=== PATIENT | female | born 2000 | race Hispanic/Latino ===

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

== ENCOUNTER 2020-07-22 19:30 | Emergency (ER) | payer OTHER ==
[~2020-07-22] VITALS: Ht 160 cm; Wt 68.7 kg
[2020-07-22 19:32] VITALS: BP 134/72
== END 2020-07-22 20:49 | disposition home or self-care (01) ==
LOC: M ED 19:30
DX: L98.9 Disorder of the skin and subcutaneous tissue, unspecified (principal)

== ENCOUNTER 2020-10-03 13:50 | Emergency (ER) | payer OTHER ==
[~2020-10-03] VITALS: Ht 160 cm; Wt 71.6 kg
[2020-10-03 13:57] VITALS: BP 107/62
== END 2020-10-03 14:49 | disposition home or self-care (01) ==
LOC: M ED 13:50
DX: R35.0 Frequency of micturition (principal); N32.81 Overactive bladder

== ENCOUNTER 2020-10-21 14:02 | Emergency (ER) | payer OTHER ==
[~2020-10-21] VITALS: Ht 160 cm; Wt 72.6 kg
[2020-10-21 16:13] VITALS: BP 125/68
== END 2020-10-21 16:15 | disposition home or self-care (01) ==
LOC: M ED 14:02
DX: O26.892 Other specified pregnancy related conditions, second trimester (principal); R35.0 Frequency of micturition; Z3A.13 13 weeks gestation of pregnancy

== ENCOUNTER 2020-12-07 12:50 | Outpatient (CLI) | payer OTHER ==
[~2020-12-07] VITALS: Ht 160 cm; Wt 77.6 kg
[2020-12-07] MEDS ORDERED: PRENTAB9 PO (13:04)
[2020-12-07] MEDS ORDERED: AMPI500C9 PO (13:10)
[2020-12-07 13:20] VITALS: BP 118/58
[2020-12-07] MEDS ORDERED: HOME MED LIST COMPLETE! XX SCH (13:30)
[2020-12-07 13:50] VITALS: BP 117/59
[2020-12-07 14:56] VITALS: BP 110/60
== END 2020-12-07 15:14 | disposition home or self-care (01) ==
LOC: M LDO 12:50
PROVIDERS: ATTEND Registered Nurse
DX: O46.92 Antepartum hemorrhage, unspecified, second trimester (principal); Z3A.20 20 weeks gestation of pregnancy
CPT/HCPCS: G0378; G0463

== ENCOUNTER 2021-03-20 01:30 | Outpatient (CLI) | payer OTHER ==
[~2021-03-20] VITALS: Ht 160 cm; Wt 94.1 kg
[~2021-03-20 01:30] MED LIST: AMPI500C9 PO; PRENTAB9 PO
[2021-03-20 01:46] VITALS: BP 103/64
[2021-03-20] MEDS ORDERED: VITA500C24 PO (01:55)
[2021-03-20] MEDS ORDERED: IRON65TA2 PO (01:55)
[2021-03-20] MEDS ORDERED: HOME MED LIST COMPLETE! XX SCH (02:00)
[2021-03-20] MEDS ORDERED: ACETAMINOPHEN 500 MG TAB PO ONE (02:50)
--- NOTE | 2021-03-20 07:01 | IPNPDOC ---
Text Note Date of Service The patient was seen on 03/20/21. NOTE 20 yo at 34+6 weeks gestation presented to L&D with the complaint of right sided abdominal pain of about 2 hours duration. She describes it as somewhat sharp. It is constant in nature. There is no radiation. It is made worse when her baby moves. She denies any trauma. She denies any fevers/chills, SOB, chest pain, dysuria, anorexia, constipation, or vomiting. She denies any bleeding, discharge, or leakage of fluid. She endorses regular movement. The pain lessened considerably when she got to L&D triage. Chaperoned by RN Vitals - VSS, afebrile, normotensive, non tachycardic General - AAOX3, sitting up in bed, pleasant and conversant, NAD Abdomen - Soft. Gravid uterus appropriate size for gestational age. No fundal tenderness. Mild tenderness on right side of uterus. No rebound or guarding. No RLQ tenderness. No flank pain. Cervix - cl/thick/high, posterior. No blood or discharge in vaginal vault. FHR tracing - Cat I with +accels, no decels. Ctx intermittent on toco not felt by patient. Labs: UA - clean catch urine unremarkable No signs of labor or infection. No signs of acute abdominal process. R eassuring status. UA unremarkable. Patient refused medication for pain. Also, pain had significantly improved while in triage. Discharged home with return precautions. All questions answered. 40 minutes Anny Vaca, I+O Anny JOHNSON, I+O Vital Signs Date Time Temp Pulse Resp B/P (MAP) Pulse Ox O2 Delivery O2 Flow Rate FiO2 03/20/21 01:46 98.8 93 18 103/64 (77) YANNI HEMPHILL DO Mar 20, 2021 07:01
== END 2021-03-20 04:15 | disposition home or self-care (01) ==
LOC: M LDO 01:30
PROVIDERS: ATTEND Obstetrics & Gynecology
DX: O26.893 Other specified pregnancy related conditions, third trimester (principal); R10.11 Right upper quadrant pain; Z3A.34 34 weeks gestation of pregnancy
CPT/HCPCS: 59025; 81001; G0378; G0463

== ENCOUNTER 2021-04-29 12:54 | Inpatient (IN) | payer OTHER ==
[~2021-04-29] VITALS: Ht 160 cm; Wt 99.9 kg
[~2021-04-29 12:54] MED LIST changes: +IRON65TA2 PO; +VITA500C24 PO
[2021-04-29 13:09] VITALS: BP 113/58
[2021-04-29] MEDS ORDERED: PENICILLIN G POTASSIUM IV 5 MU in D5W MINI-BAG PLUS 100 ML IV STA (13:49)
[2021-04-29] MEDS ORDERED: OXYTOCIN DRIP 30 UNITS in IV 1 EA IV PRN ×4 (13:50)
--- NOTE | 2021-04-29 14:09 | HPEPDOC ---
Obstetrical History & Physical General Date of Admission Apr 29, 2021 at 13:37 History of Present Illness 19yo G1 at 40+4 presenting for labor check, denies vaginal bleeding, loss of flu id. Endorses positive movement. Care Care: Good Care Dating Final EDC: Apr 25, 2021 Final EDC by: LMP, 1st trimester (US) Antepartum Course Diagnos(e)s GBS+ urine frequent UTI MRSA UTI Height (inches): 63 Pre- weight (lbs.): 146 Admission Weight (lbs.): 220 Change in Weight (lbs.): 74 Past Medical History Past Obstetrical History : Past Obstetrical History: [employer] History: No pertinent history Past Medical History Medical History frequent UTI Surgical History: Denies/None Family History Significant Family History: No pertinent family hx Social History Marital Status: Family situation: Spouse/partner home Psychosocial History: No pertinent psych hx * Smoker: non-smoker Alcohol: Denies Drugs: denies Abuse Violence Screening Have you been hit/kicked/slapp: No Have you been sexually assault: No Imunizations Tdap status: current Influenza Status: needs Allergies Coded Allergies: No Known Allergies (Unverified , 04/29/21) Medications Scheduled Ascorbic Acid (Vitamin C) 500 Mg Capsule, 1 CAP PO BID Ferrous Sulfate (Iron) 325 Mg Tablet, 1 TAB PO BID No.137/Iron/Folic Acd ( Vitamin Tablet) 1 Each Tablet, 1 TAB PO DAILY Physical Examination Physical Examination GENERAL: Alert and oriented times three. BREAST: . ABDOMEN: Gravid and non-tender to touch. FETUS: Is vertex by ultrasound; efw 3600g HEART RATE: Regular rate LUNGS: nonlabored breathing EXTREMITIES: No edema. Laboratory Data 24H LABS Laboratory Tests 2 04/29/21 13:45: Serology Scanned Report Hepatitis B Testing Urine Culture: Other (GBS) Pertinent Laboratoy Data Blood Type: O+ RBC Antibody Screen: Negative HIV: Negative Hepatitis B: Negative Rapid Plasma Reagin: Nonreactive Rubella: Immune Varicella: Immune Chlamydia/Gonorrhea: Negative Group B Streptococcus: Positive Quad Screen Test: Negative Cystic Fibrosis: Negative Glucose Tolerance Test: 153 Anatomy Ultrasound Placenta Location: Anterior Normal Anatomy: Yes Placenta Previa: No Steroid Therapy Steroid Therapy: No Vaginal Examination Dilation: 4 cm Effacement: 50% Station: -1 Cervical Consistency: Medium Cervical Position: Posterior Presentation: Cephalic presentation Position: Vertex (occiput) Assessment Heart Rate (FHR): 155 Variability: Moderate Accelerations: Positive Decelerations: None Tocometer Contractions: Yes Frequency: every 2-5 min. Multi-drug resistant Organism: MRSA Assessment/Plan Assessment 19-year old G1 at 40+4 admitted for labor, cervix 4/50/-1, GBS positive, efw 3600g, cephalic by ultrasound, category I tracing. Plan Monitor and deliver. Penicillin for GBS prophylaxis. MRSA PCR nasal swab for clearance. Labor and Delivery Counseling Discussed risks of vaginal delivery including but not limited to bleeding, infection, hysterectomy, injury to , delivery, forceps and vacuum delivery, need for blood transfusion, shoulder dystocia. All questions answered and they indicated understanding. JOSSY RIVERS DO Apr 29, 2021 14:09
[2021-04-29 14:19] LABS: HEMOGLOBIN 12.2 g/dl (12.0-15.5); MEAN CORPUSCULAR HEMOGLOBIN 28.2 pg (27.0-33.0); MEAN CORPUSCULAR HGB CONC 33.9 g/dl (32.0-36.5); MEAN CORPUSCULAR VOLUME 83.3 fl (80.0-96.0); PLATELET COUNT, AUTOMATED 216 10^3/uL (150-450); RED BLOOD COUNT 4.32 10^6/uL (4.00-5.40); WHITE BLOOD COUNT 9.4 10^3/uL (4.0-10.0)
[2021-04-29] MEDS: LR 1,000 ML IV SCH ×2 (14:26→22:08)
[2021-04-29] MEDS: PENICILLIN G POTASSIUM IV 2.5 MU in IV 1 EA IV SCH ×2 (18:00→23:33)
[2021-04-29 18:22] VITALS: BP 101/60
[2021-04-29 19:40] VITALS: BP 129/87
[2021-04-29 20:40] VITALS: BP 113/57
[2021-04-29 22:10] VITALS: BP 115/72
[2021-04-29 23:31] VITALS: BP 114/60
[2021-04-30] VITALS (51 sets, daily range): BP systolic 100–134; BP diastolic 50–82
[2021-04-30] MEDS ORDERED: FENTANYL 2MCG/ML ROPIVACAINE 0.2% IN 0.9% NACL 100ML IVBAG As Ordered ONE (01:48)
[2021-04-30] MEDS ORDERED: ePHEDrine SULFATE 25 MG/5 ML(5MG/ML) SYRINGE IV PRN (03:00)
[2021-04-30] MEDS ORDERED: ONDANSETRON 4MG/2ML VIAL IV PRN ×3 (03:00→16:45)
[2021-04-30] MEDS ORDERED: EPIDURAL/PCA KEYS XX PRN (03:00)
[2021-04-30] MEDS ORDERED: diphenhydrAMINE 50MG/ML VIAL (J1200) IV PRN ×2 (03:00→15:45)
[2021-04-30] MEDS ORDERED: REFRIGERATOR IV KEYS XX PRN (03:00)
[2021-04-30] MEDS ORDERED: NALOXONE INJ 0.4MG/1ML VIAL (J2310 PER 1MG) IV PRN ×3 (03:00→15:45)
[2021-04-30] MEDS ORDERED: EPIDURAL COMMENT XX SCH (03:00)
[2021-04-30] MEDS ORDERED: LACTATED RINGER'S 1000 ML IV PRN (03:00)
[2021-04-30] MEDS: FENTANYL/ROPIVACAINE/NACL BAG 100 ML EPIDURAL SCH ×2 (03:00→14:50)
[2021-04-30] MEDS: PENICILLIN G POTASSIUM IV 2.5 MU in IV 1 EA IV SCH ×2 (03:42→07:30)
--- NOTE | 2021-04-30 04:16 | IPNPDOC ---
Obstetrical Progress Note Date of Service Apr 30, 2021 Subjective Patient requesting epidural Objective Vital Signs Date Time Temp Pulse Resp B/P (MAP) Pulse Ox O2 Delivery O2 Flow Rate FiO2 04/30/21 01:02 70 122/58 (79) 04/29/21 22:10 18 04/29/21 20:40 97.9 Assessment Heart Rate (FHR): 155 Variability: Decreased Accelerations: Positive Decelerations: None Heart Rate Tracing: Category I Tocometer Contractions: Yes Frequency: regular, every 2-5 min. Sterile Vaginal Examination Dilation: 6 cm Assessment and Plan Age: 20 : 1 Term: 0 Pre-term: 0 Abortions: 0 Livin Weeks & Days 33+0 Status: Reassuring Group B Streptococcus: Positive Anticipate: Vaginal Delivery Additional Comments Natural labor progressing naturally. anesthesia notified. -routine intrapartum care JOSSY RIVERS DO Apr 30, 2021 04:16
--- NOTE | 2021-04-30 08:20 | IPNPDOC ---
Text Note Date of Service The patient was seen on 04/30/21. NOTE Received report from Dr. Ramos. May is a 20 yo at 40+5 weeks gestation who was admitted yesterday for early labor. She has been progressing on her own power. She just recently received an epidural and is now comfortable. She has received multiple doses of PCN. May denies any concerns at the bedside. She is comfortable. Chaperoned by RN Cervix: /-1. AROM performed productive of thin meconium stained fluid. FHR tracing - Cat I with moderate variability, +accels, no decels. May is progressing, though slowly. She has adequate GBS treatment. Will reassess progress in 2-4 hours. If progress continues to be slow will add pitocin. All patient and questions answered. Yo VS,Anny, I+O VS, Anny, I+O Laboratory Tests 04/29/21 14:07 Vital Signs Date Time Temp Pulse Resp B/P (MAP) Pulse Ox O2 Delivery O2 Flow Rate FiO2 04/30/21 07:59 98.6 84 18 113/62 (79) I&O- Last 24 Hours up to 6 AM 04/30/21 05:59 Intake Total 1625 ml Balance 1625 ml YANNI HEMPHILL DO Apr 30, 2021 08:20
[2021-04-30] MEDS ORDERED: OXYTOCIN DRIP 30 UNITS in IV 1 EA IV SCH ×2 (09:50→16:45)
[2021-04-30] MEDS: LR 1,000 ML IV SCH (11:08)
--- NOTE | 2021-04-30 12:44 | IPNPDOC ---
Text Note Date of Service The patient was seen on 04/30/21. NOTE Patient reporting feeling vaginal pressure. Pitocin started earlier due to poor contraction pattern. chaperoned by RN Cervix: C/C/0. FHR - Cat II, BL 160, moderate variability but periods of minimal, +accels, +early and intermittent late decels. Overall reassuring tracing. continue pitocin. Will begin pushing soon. All patient and questions answered. Yo VSAnny I+O VS, Anny I+O Laboratory Tests 04/29/21 14:07 Vital Signs Date Time Temp Pulse Resp B/P (MAP) Pulse Ox O2 Delivery O2 Flow Rate FiO2 04/30/21 11:43 86 119/66 (83) 04/30/21 11:13 18 04/30/21 10:13 98.6 I&O- Last 24 Hours up to 6 AM 04/30/21 05:59 Intake Total 1625 ml Balance 1625 ml YANNI HEMPHILL DO Apr 30, 2021 12:44
--- NOTE | 2021-04-30 14:24 | IPNPDOC ---
Text Note Date of Service The patient was seen on 04/30/21. NOTE Went to assess progress. May has nataliia pushing for the last hour. Chaperoned by RN Cervix: C/C/0 with caput to +1. Baby is OP. FHR tracing - Cat II, there has been sustained tachycardia for the last >1hr. Periods of minimal variability, +accels. No real progress over last hour of pushing. FHR tracing has been Cat II with tachycardia. Last maternal temp 99.7. I discussed my concerns regarding the lack of progress and FHR tracing with May and her . Will continue pushing efforts for now. I discussed if there is not substantial progress over the next hour then she will require a section. All questions answered. angélica VS,Anny, I+O VS, Anny, I+O Vital Signs Date Time Temp Pulse Resp B/P (MAP) Pulse Ox O2 Delivery O2 Flow Rate FiO2 04/30/21 13:14 99.7 102 20 131/80 (97) I&O- Last 24 Hours up to 6 AM 04/30/21 06:00 Intake Total 1625 ml Balance 1625 ml YANNI HEMPHILL DO Apr 30, 2021 14:24
[2021-04-30] MEDS ORDERED: AZITHROMYCIN INJ 500 MG, VIAL MATE ADAPTER 1 EACH in NS 250 ML IV ONE (15:20)
[2021-04-30] MEDS ORDERED: ceFAZolin SOD 2 GM in IV 1 EA IV ONE (15:20)
[2021-04-30] MEDS ORDERED: BICITRA 30ML SOLN UDC As Ordered ONE (15:20)
[2021-04-30] MEDS ORDERED: ceFAZolin 2 GM/D5W 50 ML IV BAG (J0690 PER 500MG) As Ordered ONE (15:21)
--- NOTE | 2021-04-30 15:25 | IPNPDOC ---
Text Note Date of Service The patient was seen on 04/30/21. NOTE Presented to room for assessment. May has been pushing for the last two hours. FHR remains Cat II with sustained tachycardia and periods of minimal variability. Chaperoned by RN Cervix: C/C/0 to +1. Baby is OP. No appreciable descent over two hours. I recommended section now for persistent Cat II tracing and arrest of descent. We discussed all risks of surgery to include, but not limited to, bleeding requiring blood transfusion, risk of infection, risk of injury to bowel, bladder, or other structures which could require additional surgery, risk of injury to baby, risk of needing a hysterectomy as a life saving measure, and even risk of and/or maternal . May verbalized understanding of these risks and elected to proceed. Consents signed. Anesthesia notified. Will proceed when team assembled. All questions answered. Yo VS,Anny, I+O VS, Anny, I+O Vital Signs Date Time Temp Pulse Resp B/P (MAP) Pulse Ox O2 Delivery O2 Flow Rate FiO2 04/30/21 14:13 99.1 95 20 127/60 (82) I&O- Last 24 Hours up to 6 AM 04/30/21 05:59 Intake Total 1625 ml Balance 1625 ml YANNI HEMPHILL DO Apr 30, 2021 15:25
[2021-04-30] MEDS ORDERED: BICITRA 30ML SOLN UDC PO SCH (15:30)
[2021-04-30] MEDS ORDERED: METOCLOPRAMIDE INJ 10MG/2ML VIAL (J2765 PER 1) IV PRN (15:45)
[2021-04-30] MEDS ORDERED: NALBUPHINE HCL 10 MG/ML AMP (J2300) IV PRN (15:45)
[2021-04-30] MEDS ORDERED: LIDOCAINE 2% W/EPINEPHRINE 20ML VIAL **PRES FREE As Ordered ONE (15:47)
[2021-04-30] MEDS ORDERED: ONDANSETRON 4MG/2ML VIAL As Ordered ONE (15:47)
[2021-04-30] MEDS ORDERED: KETOROLAC 60MG 2ML VIAL As Ordered ONE (15:47)
[2021-04-30] MEDS ORDERED: MORPHINE PRES-FREE INJ 10 MG/10 ML VIAL (J2274) As Ordered ONE (15:47)
[2021-04-30] MEDS ORDERED: ACETAMINOPHEN 1000MG 100ML IV BTL (OFIRMEV) (J0131 PER 10MG) As Ordered ONE (15:51)
[2021-04-30] MEDS ORDERED: OXYTOCIN 30 UNITS IN 0.9% NaCl 500ML IV BAG (J2590) As Ordered ONE (15:51)
[2021-04-30 16:21] LABS: CORD GAS ABE V -5.5; CORD GAS HCO3 V 21.1 MEQ/L; CORD GAS O2 SAT V 60.4 %; CORD GAS PCO2 V 45.5 mmHg; CORD GAS PH V 7.285 UNITS; CORD GAS PO2 V 28.4 mmHg; CORD GAS SBC V 19.1 MEQ/L; CORD GAS TCO2 V 22.5 MEQ/L
[2021-04-30 16:22] LABS: CORD GAS ABE A -5.9; CORD GAS HCO3 A 23.7 MEQ/L; CORD GAS O2 SAT A 17.9 %; CORD GAS PCO2 A 65.3 mmHg; CORD GAS PH A 7.177 UNITS; CORD GAS PO2 A 13.3 mmHg; CORD GAS TCO2 A 25.7 MEQ/L
[2021-04-30] MEDS ORDERED: LR 1,000 ML IV SCH (16:45)
[2021-04-30] MEDS ORDERED: oxyCODONE 5MG TAB PO PRN (16:45)
[2021-04-30] MEDS ORDERED: ACETAMINOPHEN TAB 650MG DOSE (2X325MG) PO PRN (16:45)
[2021-04-30] MEDS ORDERED: KETOROLAC 30 MG/ML 1ML VIAL IV SCH (16:45)
[2021-04-30] MEDS ORDERED: RHOGAM 300 MCG (1500 IU) INJ (J2790) IM SCH (16:45)
[2021-04-30] MEDS ORDERED: MEASLES,MUMPS,RUBELLA VACCINE INJ (MMR-II) (90707) SC SCH (16:45)
--- NOTE | 2021-04-30 17:45 | ROOPDOC ---
[facility] Report Of Operation Report of Operation DATE OF PROCEDURE: 04/30/2021 PREPROCEDURE DIAGNOSIS: Arrest of descent, NRFHT POSTPROCEDURE DIAGNOSIS: Arrest of descent with a nuchal cord, and right occiput transverse (ROT) position. PROCEDURE: Primary low transverse section. SURGEON: Derek Ram DO, FACOG UNIT EDUCATOR: Ms. Chelsi Servin CNM, who's assistance with exposure, retraction, visualization, and delivery of the was essential to completion of the case ANESTHESIA: Epidural. FLUIDS: 800 mL. URINE OUTPUT: 200 mL. ESTIMATED BLOOD LOSS: 800 mL. ANTIBIOTICS: 2 grams ancef and 500mg azithromycin COMPLICATIONS: None. FINDINGS: Female infant delivered in cephalic, ROT position. Nuchal cord X1 delivered through and reduced manually. Apgars 5/9/9. weight 4270 grams or 9lbs 7oz. Normal appearing uterus, ovaries, and fallopian tubes. Normal appearing placenta. DETAILED PROCEDURE DESCRIPTION: The risks, benefits, indications, and alternatives of the procedure were reviewed with the patient and informed consent was obtained. The patient was taken to the operating room where epidural anesthesia was found to be adequate. She was then prepped and draped in the usual sterile fashion in a dorsal supine position. A surgical time-out was then performed and all in attendance were in agreement with the planned procedure. A Pfannenstiel skin incision was then made with a scalpel and carried through to the underlying layer of fascia. The fascia was incised in the midline and was extended bluntly superiorly, inferiorly, and laterally. The superior aspect of the fascial incision was grasped with Judie clamps, elevated and the underlying rectus muscles were dissected off with a scalpel. Attention was then turned to the inferior aspect of this incision, which in a similar fashion was grasped, tented up with Judie clamps, and the rectus muscles dissected off with Lange scissors. The rectus muscles were then at the midline. The peritoneum was identified and entered digitally. The peritoneal incision was then extended horizontally and superiorly with good visualization of the bladder. A Mobius self containing retractor was then inserted into the abdomen as a means for exposure. The vesicouterine peritoneum was then identified and entered sharply with Metzenbaum scissors. This incision was then extended laterally and a bladder flap was created digitally. Next, the low uterine segment was incised in a transverse fashion with a scalpel. The uterine incision was then extended manually. Light meconium stained fluid was noted upon entry into the uterus. The was found to be in cephalic ROT position. The infant's head was delivered atraumatically through the hysterotomy followed easily by the remainder of the body. The nose and mouth were suctioned with a bulb syringe and the cord was doubly clamped and cut. A nuchal cord was delivered through and reduced manually after delivery. The was then handed off to the awaiting team. Cord gases were obtained. The placenta was then removed manually. The uterus was then cleared of all clots and debris. The uterine incision was repaired with #0 Monocryl suture in a running, locked fashion. A second layer of #0 Monocryl was then used to imbricate the hysterotomy site in a vertical fashion. Inspection revealed excellent hem ostasis. The posterior cul-de-sac was then irrigated to good effect. The hysterotomy again was noted to be hemostatic. There was slight oozing near the bladder flap. Ismael was then applied to these oozing sites to good effect. The paracolic gutters were then cleared of all clots and debris. Final inspection of the hysterotomy revealed excellent hemostasis. The mobius self-containing retractor was then removed from the abdomen. The peritoneum was then reapproximated with #3-0 Vicryl suture. The fascia was reapproximated with #0 Vicryl suture in a running fashion. The subcutaneous fat was closed with #3-0 Vicryl in a running fashion. The skin was closed with #4-0 Monocryl suture in a subcuticular fashion. The incision was then dressed with Steri-Strips and a pressure dressing was applied. At the completion of the case a manual exam was performed which revealed good uterine tone and minimal vaginal bleeding. The patient tolerated the procedure well. Sponge, needle, and instrument counts were correct times three. The patient was taken to the recovery room in stable condition. DEREK RAM DO Apr 30, 2021 17:45
[2021-04-30] MEDS ORDERED: FLUCONAZOLE 100 MG TAB PO ONE (21:20)
[2021-04-30] MEDS: KETOROLAC 30 MG/ML 1ML VIAL IV SCH (22:41)
[2021-05-01] MEDS: LR 1,000 ML IV SCH (01:50)
[2021-05-01 01:57] VITALS: BP 110/55
[2021-05-01] MEDS: KETOROLAC 30 MG/ML 1ML VIAL IV SCH ×2 (04:45→09:24)
[2021-05-01 05:54] VITALS: BP 120/60
[2021-05-01] MEDS: oxyCODONE 5MG TAB PO PRN ×2 (06:45→22:40)
[2021-05-01 07:04] LABS: HEMATOCRIT 26.2 % (36.0-47.0); MEAN CORPUSCULAR HEMOGLOBIN 28.3 pg (27.0-33.0); MEAN CORPUSCULAR VOLUME 83.4 fl (80.0-96.0); PLATELET COUNT, AUTOMATED 150 10^3/uL (150-450); RED BLOOD COUNT 3.14 10^6/uL (4.00-5.40); WHITE BLOOD COUNT 12.3 10^3/uL (4.0-10.0)
[2021-05-01 07:08] LABS: HEMOGLOBIN 8.9 g/dl (12.0-15.5)
--- NOTE | 2021-05-01 07:36 | IPNPDOC ---
Progress Note Date of Service: May 01, 2021 Progress Note 20 yo G1 now P1 s/p uncomplicated PLTCS yesterday afternoon for arrest of descent. Ms. Donato is doing well. She is ambulating, tolerating a regular diet. Pain is well controlled on current regimen. Has not been able to meet her DTV after folet catheter removal. Vitals - VSS, afebrile, normotensive, nontachycardic General - AAOX3, laying in bed, NAD Abdomen - Soft, nondistended. Fundus firm at U-1 but with some displacement from full bladder. No fundal tenderness. Bandage removed and incision clean/dry/intact with steri strips in place. Appropriate rosemary incisional tenderness to palpation. No rebound tenderness or guarding. Extremities - mild edema. Urine output - Appropriate. Unable to meet DTV after catheter removal. Labs: Pre op H/H: ~ ---> ~01/28 Doing well for PPD/POD#1 overall, but unable to meet DTV. Will replace singleton catheter and consider removal tomorrow. Continue IS use. Continue to encourage ambulation and . CBC stable. Continue routine post op / care. Anticipate dc home tomorrow. Yo VS, I&O, 24H, Fishbone Vital Signs/I&O Vital Signs Date Time Temp Pulse Resp B/P (MAP) Pulse Ox O2 Delivery O2 Flow Rate FiO2 05/01/21 06:45 18 05/01/21 05:54 97.5 75 120/60 (80) 99 Room Air I&O- Last 24 Hours up to 6 AM 05/01/21 06:00 Intake Total 2483 ml Output Total 2225 ml Balance 258 ml Laboratory Data 24H LABS Laboratory Tests 2 04/30/21 16:16: Cord Arterial Blood pH 7.177, Cord Arterial Blood PCO2 65.3, Cord Arterial Blood PO2 13.3, Cord Arterial Blood HCO3 23.7, Cord Arterial Blood Total CO2 25.7, Cord Arterial Blood Base Excess -5.9, Cord Arterial Base Excess (Standard 18.0, Cord Arterial Bld Oxygen Saturation 17.9, Cord Venous Blood pH 7.285, Cord Venous Blood PCO2 45.5, Cord Venous Blood PO2 28.4, Cord Venous Blood HCO3 21.1, Cord Venous Blood Total CO2 22.5, Cord Venous Base Excess (Actual) -5.5, Cord V enous Base Excess (Standard) 19.1, Cord Venous Blood Oxygen Saturation 60.4 05/01/21 06:54: Nucleated Red Blood Cells % (auto) 0.0 CBC/BMP Laboratory Tests 05/01/21 06:54 YANNI HEMPHILL DO May 01, 2021 07:36
[2021-05-01] MEDS: PRENATAL VITAMINS CHEWABLE TABLET PO SCH (09:23)
[2021-05-01] MEDS: FLUCONAZOLE 100 MG TAB PO SCH ×2 (09:24→20:17)
[2021-05-01 10:00] VITALS: BP 110/64
[2021-05-01 14:00] VITALS: BP 125/64
[2021-05-01] MEDS: SIMETHICONE 80MG CHEW TAB PO PRN ×2 (15:43→22:39)
[2021-05-01] MEDS: IBUPROFEN 800 MG TAB PO SCH (17:46)
[2021-05-01 18:00] VITALS: BP 123/75
[2021-05-01] MEDS ORDERED: IBUPROFEN 800 MG TAB PO SCH (18:45)
[2021-05-01 22:00] VITALS: BP 108/59
[2021-05-02] MEDS: IBUPROFEN 800 MG TAB PO SCH ×3 (02:52→18:45)
[2021-05-02 05:12] VITALS: BP 131/69
[2021-05-02] MEDS: oxyCODONE 5MG TAB PO PRN ×2 (06:41→20:48)
[2021-05-02] MEDS: SIMETHICONE 80MG CHEW TAB PO PRN (06:41)
[2021-05-02] MEDS: PRENATAL VITAMINS CHEWABLE TABLET PO SCH (09:49)
[2021-05-02] MEDS: FLUCONAZOLE 100 MG TAB PO SCH ×2 (09:51→20:48)
--- NOTE | 2021-05-02 13:16 | IPN ---
PROGRESS NOTE DATE: 05/02/2021 SUBJECTIVE: This is a 20-year-old 1, now para 1, admitted for labor check at 40 and 0/4 weeks of gestation. She had a primary section for arrest of descent and nonreassuring heart tones. Delivered a female infant weighing 9 pounds 7 ounces, 4270 gm, Apgars of 5, 9, and 9 at one, five and ten minutes. Arterial pH was 7.17, base excess -5.9, venous pH 7.28, base excess -5.5. She was GBS positive, treated appropriately. On her third and postoperative day, she is still unable to void. She has a Arriaga catheter in place which will be coming out at 9:00 in order to evaluate urinary status. Her admitting hemoglobin was 12.2, hematocrit 36.0, and platelets were 216. Her day two hemoglobin was 8.9 and hematocrit 26.2 and platelets were 115. OBJECTIVE: Vital signs: Her blood pressure this morning is 131/69, respirations 16, pulse 91, temperature 97.8. The rest of the examination is unremarkable. HEENT: Normocephalic, atraumatic. Neck full range of motions. Pupils equal and reactive to light. Distal pulses symmetric. No evidence of DVT, PE, or superficial phlebitis. Chest is clear bilaterally to bases. No wheezes or rhonchi. Abdomen: No CVA tenderness. Abdomen is soft. Uterus 2 below. Lochia is moderate and incision is clean and dry. No rashes, lesions or pruritus. No arthralgias or myalgias. No complaint of joint pain. No complaint of cough, wheeze, shortness of breath, or dyspnea on exertion. No nausea, vomiting, diarrhea or constipation. No urgency or frequency. ASSESSMENT/PLAN: Plans are to remove the Arriaga catheter, allow her to void. Scan her bladder post-void to see if there is any residual and based on that discussion and the residual of urine, we will determine whether she is a candidate for discharge or a candidate for convalescence for another 24 hours. The patient expressed understanding of the plan of care. cc: Debby HO M.D.
[2021-05-02 18:05] VITALS: BP 122/66
[2021-05-03] MEDS: IBUPROFEN 800 MG TAB PO SCH ×2 (01:27→09:25)
[2021-05-03] MEDS ORDERED: ACET1TAB55 PO (05:15)
[2021-05-03] MEDS ORDERED: IBUP80TA PO (05:15)
[2021-05-03] MEDS ORDERED: OXYC-517 PO (05:15)
--- NOTE | 2021-05-03 05:21 | DS.PDOC ---
Discharge Summary General Date of Admission Apr 29, 2021 at 13:37 Date of Discharge May 03, 2021 Discharge Summary HOSPITAL COURSE: May is a 20 yo G1 now P1 who was admitted for early labor. She progressed into 2nd stage and then began pushing. She pushed for >2 hours with no descent. She then underwent a primary low transverse section on 30Apr2021 for this reason. Her surgery was uncomplicated. She had urinary retention initially and required a singleton catheter to then be in place for an additional 24 hours. She then had the catheter removed and was able to urinate without difficulty. Her post operative recovery course was otherwise uncomplicated. On her day of discharge she met all appropriate discharge criteria. She was ambulating, voiding on her own, tolerating a regular diet, passing gas, and her pain was well controlled with PO pain medication. DISCHARGE MEDICATIONS: Please see below. ALLERGIES: Please see below. PHYSICAL EXAMINATION ON DISCHARGE: VITAL SIGNS: Please see below. GENERAL: AAOX3, sitting up in bed, NAD CARDIOVASCULAR EXAMINATION: RRR ABDOMINAL EXAMINATION: Soft, non distended. Fundus firm at U-2. No fundal tenderness. Incision C/D/I. Steri strips in place. Appropriate tenderness to palpation. No rebound tenderness, guarding, or peritoneal signs. EXTREMITIES: No edema PSYCHIATRIC EXAMINATION: Affect appropriate LABORATORY DATA: Please see below. ACTIVITY: Pelvic rest. No lifting >20 pounds for 6 weeks. DIET: Regular DISCHARGE PLAN: Discharge home DISPOSITION: [place] home on 03May2021 DISCHARGE INSTRUCTIONS: Postoperatively, you should expect significant abdominal soreness. We will provide oral pain medications, typically an anti-inflammatory (motrin) and an oral narcotic (percocet). It is recommended to take the anti-inflammatory medication three times daily, using the narcotic medication as needed in addition. Sometimes, narcotic medications can cause constipation, and we recommend using a stool softener (colace), drinking plenty of water, increasing the fiber in your diet, and drinking prune juice if constipation becomes a significant issue. Dressings: Your abdominal incision is closed with absorbable stitches and dressed with steri-strips. Remove the steri-strips in one week. You may shower on the day following surgery. It is normal to have some pain at the incisions that is sharp. Signs of infection at the incision include pain, redness, swelling and drainage of pus from the incision. Precautions: Please contact the [facility] during business hours, or report to the Emergency Room after hours for any of the following symptoms: * Fever (temperature > 101F) * Significant pain not controlled with oral pain medications * Significant nausea and vomiting with inability to tolerate any food or medication * Significant redness of the incisions or drainage from the incisions Return to normal: You should be able to resume normal activities and exercise within 8 weeks. You may notice more soreness with abdominal exercises, and this is to be expected. Avoid heavy lifting greater than 10 pounds until 6 weeks after surgery. Nothing in the vagina (no tampons, intercourse, or douching) for 6-8wks. You may resume sexual activity 6-8 weeks after surgery when cleared by your surgeon. ITEMS TO FOLLOWUP ON ON OUTPATIENT: 1. Incision check in the office in two weeks 2. appointment in 6 weeks 3. chart picker additional pain medication at [place] [facility] DISCHARGE CONDITION: Stable. TIME SPENT ON DISCHARGE: Greater than 20 minutes. Yanni Ram DO Vital Signs/I&Os Vital Signs Date Time Temp Pulse Resp B/P (MAP) Pulse Ox O2 Delivery O2 Flow Rate FiO2 05/02/21 21:22 18 05/02/21 18:05 97.2 92 122/66 (84) 05/02/21 06:41 Room Air 05/01/21 22:00 98 I&O- Last 24 Hours up to 6 AM 05/03/21 06:00 Output Total 1255 ml Balance -1255 ml Discharge Medications Scheduled Ibuprofen (Ibuprofen) 800 Mg Tablet, 800 MG PO Q8H No.137/Iron/Folic Acd ( Vitamin Tablet) 1 Each Tablet, 1 TAB PO DAILY, (Reported) Scheduled PRN Acetaminophen (Acetaminophen) 325 Mg Tablet, 650 MG PO Q4HP PRN for PAIN LEVEL 1-5 Oxycodone HCl (Oxycodone HCl) 5 Mg Tablet, 5 MG PO Q6H PRN for MODERATE PAIN (PS 5-7) Allergies Coded Allergies: No Known Allergies (Unverified , 04/29/21) YANNI RAM DO May 03, 2021 05:20
[2021-05-03] MEDS: oxyCODONE 5MG TAB PO PRN (05:38)
[2021-05-03 06:04] VITALS: BP 130/77
[2021-05-03] MEDS: PRENATAL VITAMINS CHEWABLE TABLET PO SCH (09:25)
[2021-05-03] MEDS: FLUCONAZOLE 100 MG TAB PO SCH (09:25)
== END 2021-05-03 12:30 | disposition home or self-care (01) | DRG 773 ==
LOC: M LDO 12:54 → M LDI 13:37 → M OBS 04-30 18:30
PROVIDERS: ADMIT Obstetrics & Gynecology; ATTEND Obstetrics & Gynecology
PROC: 10907ZC Drainage of Amniotic Fluid, Therapeutic from Products of Conception, Via Natural or Artificial Opening (ICD-10-PCS; 2021-04-30)
PROC: 10D00Z1 Extraction of Products of Conception, Low, Open Approach (ICD-10-PCS; principal; 2021-04-30 15:35)
DX: O48.0 Post-term pregnancy (principal); Z37.0 Single live birth; Z3A.40 40 weeks gestation of pregnancy; O99.824 Streptococcus B carrier state complicating childbirth; O77.0 Labor and delivery complicated by meconium in amniotic fluid; O76 Abnormality in fetal heart rate and rhythm complicating labor and delivery; O32.4XX0 Maternal care for high head at term, not applicable or unspecified; O69.81X0 Labor and delivery complicated by cord around neck, without compression, not applicable or unspecified

== ENCOUNTER 2021-05-03 22:10 | Emergency (ER) | payer OTHER ==
[~2021-05-03] VITALS: Ht 160 cm; Wt 99.1 kg
[~2021-05-03 22:10] MED LIST changes: +ACET1TAB55 PO; +IBUP80TA PO; +OXYC-517 PO
[2021-05-04] MEDS ORDERED: PERCOCET 5MG/325MG TAB PO ONE (00:10)
[2021-05-04] MEDS ORDERED: ISOVUE-370 76% 100ML VIAL As Ordered ONE (00:44)
[2021-05-04 00:45] LABS: BASO % 0.5 % (0.0-1.0); EOS # 0.3 10^3/uL (0.0-0.5); EOS % 3.9 % (0.0-3.0); HEMATOCRIT 25.4 % (36.0-47.0); HEMOGLOBIN 8.4 g/dl (12.0-15.5); LYMPH # 1.7 10^3/uL (1.5-5.0); MEAN CORPUSCULAR HEMOGLOBIN 28.2 pg (27.0-33.0); MEAN CORPUSCULAR HGB CONC 33.1 g/dl (32.0-36.5); MEAN CORPUSCULAR VOLUME 85.2 fl (80.0-96.0); MONO # 0.5 10^3/uL (0.0-0.8); MONO % 6.2 % (2.0-8.0); NEUTROPHILS # 5.7 10^3/uL (1.5-8.5); NEUTROPHILS % 67.5 % (36.0-66.0); PLATELET COUNT, AUTOMATED 253 10^3/uL (150-450); RED BLOOD COUNT 2.98 10^6/uL (4.00-5.40); WHITE BLOOD COUNT 8.4 10^3/uL (4.0-10.0)
[2021-05-04 00:46] LABS: VENOUS BASE EXCESS 0.7 (-2.0-2.0); VENOUS HCO3 25.8 MEQ/L (23.0-27.0); VENOUS O2 SATURATION 91.8 % (60.0-80.0); VENOUS PARTIAL PRESSURE CO2 43.4 mmHg (38.0-50.0); VENOUS PARTIAL PRESSURE O2 67.3 mmHg (30.0-50.0); VENOUS PH 7.392 UNITS (7.330-7.430); VENOUS TOTAL CO2 27.1 MEQ/L (24.0-28.0)
--- NOTE | 2021-05-04 01:01 | REPVR ---
PROCEDURE INFORMATION: Exam: US Duplex Lower Extremity Veins, Bilateral Exam date and time: 05/04/2021 12:14 AM Age: 20 years old Clinical indication: Other: SOB; Additional info: Leg swelling, SOB TECHNIQUE: Imaging protocol: Real-time duplex ultrasound of the extremities with 2-D li scale, color Doppler flow and spectral waveform analysis with image documentation. Complete exam focused on the bilateral lower extremity veins. COMPARISON: None FINDINGS: The calf veins are not visualized bilaterally. - There is spontaneous, phasic color flow and compressibility of the deep veins, from the common femoral to the popliteal, bilaterally otherwise. Augmentation to flow is noted. There is no evidence of DVT in the evaluated bilateral lower extremities. The visualized proximal greater saphenous veins are patent. - A few subcutaneous sonolucencies are noted superficially within the calves bilaterally consistent with soft tissue edema. No perivenous soft tissue fluid collection seen within the visualized field of view. - IMPRESSION: The calf veins are not visualized bilaterally, and therefore not evaluated. No evidence of DVT in either lower extremity otherwise. - Findings discussed above in detail. Electronically signed by: Ariel Scott On 05/04/2021 01:00:49 AM
[2021-05-04 01:21] LABS: BLOOD UREA NITROGEN 10 MG/DL (7-18); CALCIUM LEVEL 8.5 MG/DL (8.5-10.1); CARBON DIOXIDE LEVEL 27 MEQ/L (21-32); CHLORIDE LEVEL 108 MEQ/L (98-107); GLUCOSE, FASTING 95 MG/DL (70-100); NT-PRO BNP 117 PG/ML (<125); POTASSIUM SERUM 3.8 MEQ/L (3.5-5.1); SODIUM LEVEL 141 MEQ/L (136-145)
[2021-05-04 01:22] LABS: CK-MB VALUE MASS 2.3 NG/ML (<3.6); MB/CK RELATIVE INDEX 1.63 (< OR =4)
--- NOTE | 2021-05-04 01:44 | REPVR ---
PROCEDURE INFORMATION: Exam: XR Chest Exam date and time: 05/04/2021 1:08 AM Age: 20 years old Clinical indication: Other: Chest pain TECHNIQUE: Imaging protocol: XR of the chest. Views: 1 view. COMPARISON: CT ABD PELVIS WITH CONTRAST 12/01/2019 5:45 PM FINDINGS: Lungs: Unremarkable. No consolidation. Pleural spaces: Unremarkable. No pleural effusion. No pneumothorax. Heart/Mediastinum: Unremarkable. No cardiomegaly. Bones/joints: Unremarkable. IMPRESSION: No acute infiltrates. Electronically signed by: Nahomy Russo On 05/04/2021 01:44:30 AM
--- NOTE | 2021-05-04 02:07 | REPVR ---
PROCEDURE INFORMATION: Exam: CTA Chest With Contrast Exam date and time: 05/04/2021 12:09 AM Age: 20 years old Clinical indication: Shortness of breath; Patient HX: S/P c-sect w diff. Breathing now; Additional info: R/O pe TECHNIQUE: Imaging protocol: Computed tomographic angiography of the chest with contrast. 3D rendering (Not supervised by radiologist): MIP and/or 3D reconstructed images were created by the technologist. Radiation optimization: All CT scans at this facility use at least one of these dose optimization techniques: automated exposure control; mA and/or kV adjustment per patient size (includes targeted exams where dose is matched to clinical indication); or iterative reconstruction. Contrast material: ISO; Contrast volume: 75 ml; Contrast route: INTRAVENOUS (IV); COMPARISON: CR PORTABLE CHEST X-RAY 05/04/2021 12:20 AM FINDINGS: Pulmonary arteries: Normal. No pulmonary emboli. Aorta: Unremarkable. No aortic aneurysm. No aortic dissection. 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 Lungs: Unremarkable. No consolidation. No masses. Pleural spaces: Small bilateral pleural effusions. No pneumothorax. Heart: Unremarkable. No cardiomegaly. No pericardial effusion. Lymph nodes: Unremarkable. No enlarged lymph nodes. Bones/joints: Unremarkable. No acute fracture. Soft tissues: Unremarkable. IMPRESSION: 1. Negative for pulmonary emboli. 2. Small bilateral pleural effusions. Electronically signed by: Nahomy Russo On 05/04/2021 02:06:09 AM
[2021-05-04 02:58] VITALS: BP 118/65
--- NOTE | 2021-05-04 08:31 | ED PDOC ---
Post-Departure Follow-Up radiology report faxed to [facility] Gisele Nuñez MD May 04, 2021 08:31
--- NOTE | 2021-05-05 07:42 | ECGEPIP ---
[facility] - ED Test Date: 2021-05-04 Pat Name: RHODA TIJERINA Department: Room: - Gender: Female Public Works Director: : 2000 Requested By: DAVID Mayorga Order Number: [id number] Reading MD: Gisele Nuñez Measurements Intervals [place] Rate: 80 P: 22 IN: 158 QRS: -6 QRSD: 82 T: 37 QT: 360 QTc: 415 Interpretive Statements Normal sinus rhythm No prior Electronically Signed on 05-05-2021 7:42:30 EST by Gisele Nuñez
== END 2021-05-04 03:00 | disposition home or self-care (01) ==
LOC: M ED 22:10
DX: R07.9 Chest pain, unspecified (principal)
CPT/HCPCS: 71045; 71275; 80048; 82550; 82553; 82803; 83880; 84484; 85025; 93005; 93041; 93970; 94760; 99284; Q9967

== ENCOUNTER 2021-12-07 12:32 | Emergency (ER) | payer OTHER ==
[~2021-12-07] VITALS: Ht 160 cm; Wt 83.9 kg
[2021-12-07 17:18] VITALS: BP 118/9
== END 2021-12-07 17:19 | disposition home or self-care (01) ==
LOC: M ED 12:32
DX: R10.2 Pelvic and perineal pain (principal); R59.9 Enlarged lymph nodes, unspecified

== ENCOUNTER 2022-04-25 18:10 | Emergency (ER) | payer OTHER ==
[~2022-04-25] VITALS: Ht 160 cm; Wt 78.8 kg
[2022-04-25 18:10] VITALS: BP 108/65
[2022-04-25] MEDS ORDERED: ISOVUE-370 76% 100ML VIAL As Ordered ONE (19:07)
[2022-04-25] MEDS ORDERED: ACETAMINOPHEN 500 MG TAB PO ONE (19:25)
[2022-04-25 19:41] LABS: BASO % 0.5 % (0.0-1.0); EOS # 0.1 10^3/uL (0.0-0.5); EOS % 1.1 % (0.0-3.0); HEMATOCRIT 35.9 % (36.0-47.0); HEMOGLOBIN 11.9 g/dl (12.0-15.5); LYMPH # 2.2 10^3/uL (1.5-5.0); LYMPH % 25.1 % (24.0-44.0); MEAN CORPUSCULAR HGB CONC 33.1 g/dl (32.0-36.5); MEAN CORPUSCULAR VOLUME 81.4 fl (80.0-96.0); MONO # 0.5 10^3/uL (0.0-0.8); MONO % 5.5 % (2.0-8.0); NEUTROPHILS # 5.9 10^3/uL (1.5-8.5); NEUTROPHILS % 67.3 % (36.0-66.0); PLATELET COUNT, AUTOMATED 320 10^3/uL (150-450); RED BLOOD COUNT 4.41 10^6/uL (4.00-5.40); WHITE BLOOD COUNT 8.7 10^3/uL (4.0-10.0)
[2022-04-25 20:08] LABS: APPEARANCE, URINE MANUAL CLEAR (CLEAR); COLOR, URINE MANUAL YELLOW (YELLOW)
[2022-04-25 20:10] LABS: BILIRUBIN, URINE MANUAL NEGATIVE (NEGATIVE); BLOOD URINE MANUAL POSITIVE (NEGATIVE); GLUCOSE, URINE (UA) MANUAL NEGATIVE (NEGATIVE); KETONE, URINE MANUAL 2+ mg/dL (NEGATIVE); LEUKOCYTE ESTERASE, URINE MAN NEGATIVE (NEGATIVE); NITRITE, URINE MANUAL NEGATIVE (NEGATIVE); PROTEIN, URINE MANUAL 1+ mg/dL (NEGATIVE); UROBILINOGEN, URINE MANUAL NORMAL (NORMAL)
[2022-04-25 20:19] LABS: BACTERIA, URINE SMALL AMOUNT; HYALINE CAST, URINE NONE SEEN /lpf (0-1); RBC, URINE NONE SEEN /hpf (0-3); SQUAMOUS EPITHELIAL CELL URINE SMALL AMOUNT /hpf (SMALL AMT)
== END 2022-04-25 21:25 | disposition home or self-care (01) ==
LOC: M ED 18:10
DX: S10.93XA Contusion of unspecified part of neck, initial encounter (principal); R10.9 Unspecified abdominal pain; M54.50 Low back pain, unspecified; R07.9 Chest pain, unspecified; V49.40XA Driver injured in collision with unspecified motor vehicles in traffic accident, initial encounter; Y92.410 Unspecified street and highway as the place of occurrence of the external cause